=== PATIENT | female | born 1990 | race Caucasian/White ===

== ENCOUNTER 2022-06-30 09:58 | Emergency (ER) | payer OTHER ==
[~2022-06-30] VITALS: Ht 154.9 cm; Wt 90.7 kg
--- NOTE | 2022-06-30 10:18 | NUR ---
PAtient AOx4 able to express her concerns, states right ankle pain afterslip and fall
[2022-06-30] MEDS ORDERED: HYDROCODONE/APAP 5/325MG TABLET ONE (11:37)
[2022-06-30] MEDS ORDERED: HYDROCODONE/APAP 5/325MG TABLET PO ONE (12:00)
[2022-06-30] MEDS ORDERED: IBUP-1955 PO (12:11)
[2022-06-30] MEDS ORDERED: HYDR-4209 PO (12:11)
[2022-06-30 12:49] VITALS: BP 136/74
== END 2022-06-30 12:51 | disposition home or self-care (01) ==
LOC: ER 10:05
DX: S82.891A Other fracture of right lower leg, initial encounter for closed fracture (principal); W01.0XXA Fall on same level from slipping, tripping and stumbling without subsequent striking against object, initial encounter; Y93.89 Activity, other specified; Y92.89 Other specified places as the place of occurrence of the external cause; Y99.8 Other external cause status
CPT/HCPCS: 73610-TC